=== PATIENT | female | born 1960 | race Caucasian/White ===

== ENCOUNTER 2021-11-29 00:57 | Day surgery (SDC) | payer OTHER, SELFPAY ==
[2021-11-11 13:14] VITALS: BMI 22.6
--- NOTE | 2021-11-26 15:28 | PM.HPGS ---
History of Present Illness History of Present Illness Consent: Risks, benefits, and alternatives have been discussed and questions answered. Patient agrees to proceed with procedure. Chief complaint: positive cologuard Narrative: Mahnaz Krishna is a 61 year old female Referred for colon cancer screening. A Cologuard test was positive. Review of Systems Review of Systems: All systems reviewed & are unremarkable except as noted in HPI and below PMFSH Past Medical History Medical History Anxiety Essential hypertension Thyromegaly Family History Family History Father Hypertension Cerebrovascular accident, Onset Age: 50 Esophageal cancer Sibling Asthma Hyperthyroidism Grandparent Breast cancer paternal grandmother Grandparent Carcinoma of colon Maternal grandmother Social History Social History Smoking status: Never smoker Second hand tobacco smoke exposure: No Alcohol intake: current Substance use: never Substance use type: does not use Living arrangements: with family Gender identity (if verbalized by the patient): Female Spiritual care concerns: No Meds Home Medications and Allergies Home Medications Medication Instructions Recorded Confirmed Type buspirone 5 mg tablet 5 mg PO BID PRN anxiety #30 tabs 02/03/20 11/29/21 Rx amlodipine 2.5 mg tablet 2.5 mg PO DAILY #90 tabs 02/08/21 11/29/21 Rx escitalopram oxalate 10 mg tablet 10 mg PO DAILY #90 tabs 02/08/21 11/29/21 Rx Dylon Rangel Probiotic 1 tab-cap PO DAILY 11/11/21 11/29/21 History cholecalciferol (vitamin D3) 25 25 mcg PO DAILY 11/11/21 11/29/21 History mcg (1,000 unit) tablet (Vitamin D3) Allergies Allergy/AdvReac Type Severity Reaction Status Date / Time No Known Allergies Allergy Verified 11/29/21 06:58 Exam Const: General: alert Orientation/consciousness: patient oriented x3 Resp: Auscultation: clear to auscultation bilaterally Cardio: Rhythm: regular rhythm GI: GI Palp: Yes Soft to palpation and No Tenderness to palpation present (GI) Neuro: General: patient oriented x3 Assessment and Plan Assessment and plan (1) Colon cancer screening: Code(s): Z12.11 - Encounter for screening for malignant neoplasm of colon Status: Acute Assessment and Plan: Colonoscopy with possible biopsy or polypectomy or cautery or injection of substances.
[2021-11-29 06:59] VITALS: BP 161/98; PULSE 100; RESP 16; TEMP 36.7; O2SAT 100
[2021-11-29] MEDS: LACTATED RINGERS 1,000 ML 150 ML IV CONT (07:12)
--- NOTE | 2021-11-29 07:14 | P.PNAN_ITS ---
Anes - Initial Pre Proc Eval Procedure: Operation Date: 11/29/21 08:00 Proposed Procedures p Colonoscopy - Joshua Freitas MD Date/Time: 11/29/21 07:14 Surgeon: Joshua Freitas MD Pre Op Diagnosis: positive cologuard Patient Data Age: 61 Gender: F Height: 1.59 m Weight: 55.6 kg Last Vital Signs Temp 36.7 C 11/29/21 06:59 Pulse 100 11/29/21 06:59 Resp 16 11/29/21 06:59 BP 161/98 H 11/29/21 06:59 Pulse Ox 100 11/29/21 06:59 O2 Del Method Room Air 11/29/21 06:59 Allergies Allergy/AdvReac Type Severity Reaction Status Date / Time No Known Allergies Allergy Verified 11/29/21 06:58 Home Medications Medication Instructions Recorded Confirmed Type buspirone 5 mg tablet 5 mg PO BID PRN anxiety #30 tabs 02/03/20 11/29/21 Rx amlodipine 2.5 mg tablet 2.5 mg PO DAILY #90 tabs 02/08/21 11/29/21 Rx escitalopram oxalate 10 mg tablet 10 mg PO DAILY #90 tabs 02/08/21 11/29/21 Rx Dylon Rangel Probiotic 1 tab-cap PO DAILY 11/11/21 11/29/21 History cholecalciferol (vitamin D3) 25 25 mcg PO DAILY 11/11/21 11/29/21 History mcg (1,000 unit) tablet (Vitamin D3) Patient hx anesthesia problems: none Family hx anesthesia problems: none Results Review: All pre-operative results and documents have been reviewed as part of the pre- operative evaluation. [facility] Past Medical History Medical History Anxiety Essential hypertension Thyromegaly Family History Family History Father Hypertension Cerebrovascular accident, Onset Age: 50 Esophageal cancer Sibling Asthma Hyperthyroidism Grandparent Breast cancer paternal grandmother Grandparent Carcinoma of colon Maternal grandmother Social History Social History Smoking status: Never smoker Second hand tobacco smoke exposure: No Alcohol intake: current Substance use: never Substance use type: does not use Living arrangements: with family Gender identity (if verbalized by the patient): Female Spiritual care concerns: No Anes - Eval Final PreProcedure Day of Procedure 11/29/21 07:14 Patient weight: normal Heart: regular rate and rhythm Lungs: clear to auscultation Airway: Mallampati scale class II Neurological: alert and oriented Last oral intake: >/= 8 hours ASA classification: II Emergent: no Anesthetic plan: proceed Anesthesia type and monitoring: general GIVS and standard monitoring Results Review: All pre-operative results and documents have been reviewed as part of the pre- operative evaluation. Informed Consent: The patient's anesthetic plan and its attendant risks and benefits were discussed with the patient/family/POA. Questions were solicited and answers provided to the satisfaction of the patient/family/POA.
[2021-11-29 08:18] VITALS: BP 118/74; PULSE 94; RESP 20; O2SAT 100
[2021-11-29 08:28] VITALS: BP 131/91; PULSE 99; RESP 20; O2SAT 100
[2021-11-29 08:38] VITALS: BP 124/85; PULSE 84; RESP 20; O2SAT 100
== END 2021-11-29 08:43 | disposition home or self-care (01) ==
PROVIDERS: PCP Family Medicine; Visit Provider Internal Medicine Gastroenterology
PROC: 0DJD8ZZ Inspection of Lower Intestinal Tract, Via Natural or Artificial Opening Endoscopic (ICD-10-PCS; CPT 45378; principal; 2021-11-29 08:00)
DX: Z12.11 Encounter for screening for malignant neoplasm of colon (principal); R19.4 Change in bowel habit; F41.9 Anxiety disorder, unspecified; I10 Essential (primary) hypertension; E01.0 Iodine-deficiency related diffuse (endemic) goiter
CPT/HCPCS: 45378; J2704; J7120